=== PATIENT | male | born 1960 | race Caucasian/White ===

== ENCOUNTER 2018-03-05 11:46 | Emergency (ER) | payer MEDICAID ==
--- NOTE | 2018-03-05 12:22 | EDM.PDOC ---
ED HPI GENERAL MEDICAL PROBLEM - General Chief Complaint: Lower Extremity Injury/Pain Stated Complaint: FINGER INJURY Time Seen by Provider: 03/05/18 11:54 Source of Information: Reports: Patient History Limitations: Reports: No Limitations - History of Present Illness INITIAL COMMENTS - FREE TEXT/NARRATIVE: The patient present with left ring finger swelling and pain. The patient did not inure his finger. He started noticing it about 3 days ago. He has no fever or chills. He poked it but just had blood. Onset: Gradual Duration: Day(s): (3) Location: Reports: Upper Extremity, Left (index finger) Quality: Reports: Sharp Severity: Moderate Improves with: Reports: None Worsens with: Reports: None Associated Symptoms: Reports: No Other Symptoms left second finger Pain Score (Numeric/FACES): 2 - Related Data Allergies Allergy/AdvReac Type Severity Reaction Status Date / Time No Known Allergies Allergy Verified 03/05/18 11:56 Home Meds: Home Meds Cephalexin [Keflex] 500 mg PO Q6HR #40 capsule 03/05/18 [Rx] metFORMIN [Glucophage XR] 1,000 mg PO BIDMEALS 03/05/18 [History] Past Medical History - Past Health History Medical/Surgical History: Denies Medical/Surgical History Endocrine/Metabolic History: Reports: Diabetes, Type II Social & Family History - Family History Family Medical History: Noncontributory - Tobacco Use Smoking Status *Q: Never Smoker Second Hand Smoke Exposure: No - Caffeine Use Caffeine Use: Reports: Coffee - Recreational Drug Use Recreational Drug Use: No Review of Systems - Review of Systems Review Of Systems: See Below Constitutional: Reports: No Symptoms Eyes: Reports: No Symptoms Ears: Reports: No Symptoms Nose: Reports: No Symptoms Mouth/Throat: Reports: No Symptoms Respiratory: Reports: No Symptoms Cardiovascular: Reports: No Symptoms GI/Abdominal: Reports: No Symptoms Genitourinary: Reports: No Symptoms Musculoskeletal: Reports: Other (Left index finger pain and swelling) ED EXAM, GENERAL - Physical Exam Exam: See Below Exam Limited By: No Limitations General Appearance: Alert, No Apparent Distress Ears: Normal External Exam Nose: Normal Inspection Head: Atraumatic, Normocephalic Neck: Normal Inspection Respiratory/Chest: No Respiratory Distress Extremities: Other (Erythema, edema and pain to the base of the left index finger) Course - Vital Signs Last Recorded V/S: Last Vital Signs Temp 97.8 F 03/05/18 11:50 Pulse 74 03/05/18 11:50 Resp 18 03/05/18 11:50 BP 150/89 H 03/05/18 11:50 Pulse Ox 98 03/05/18 11:50 - Re-Assessments/Exams Free Text/Narrative Re-Assessment/Exam: 03/05/18 12:24 He has a parenychia. I will get him on some keflex. Departure - Departure Time of Disposition: 12:25 Disposition: Home, Self-Care 01 Condition: Good Clinical Impression: Paronychia - Discharge Information Prescriptions: Cephalexin [Keflex] 500 mg PO Q6HR #40 capsule Referrals: PCP,None [Primary Care Provider] - Veornica Collado PA [Physician Byproducts Supervisor] - 1 Week Forms: ED Department Discharge Additional Instructions: Soak your finger in warm soapy water 2 times per day and apply antibiotic ointment after. Put warm compresses on your finger 3 times per day for 5 days. Take the keflex 4 times per day. Please return if you are worse.
== END 2018-03-05 12:35 | disposition home or self-care (01) ==
LOC: JD.ED 11:46
DX: L03.012 Cellulitis of left finger (principal)
CPT/HCPCS: 99283

== ENCOUNTER 2018-03-08 14:15 | Emergency (ER) | payer MEDICAID ==
[2018-03-08] MEDS ORDERED: Bupivacaine 0.5% 10 ML SDV INJECT ONE (14:43)
[2018-03-08] MEDS ORDERED: Ketorolac 30 MG/ML SDV IVPUSH SCH (14:45)
[2018-03-08] MEDS ORDERED: cefTRIAXone 2 GM in Sodium Chloride 0.9% 100 ML IV SCH (14:45)
--- NOTE | 2018-03-08 14:45 | EDM.PDOC ---
ED HPI GENERAL MEDICAL PROBLEM - General Chief Complaint: Wound Recheck Stated Complaint: INFECTED FINGER NOT BETTER Time Seen by Provider: 03/08/18 14:39 Source of Information: Reports: Patient History Limitations: Reports: No Limitations - History of Present Illness INITIAL COMMENTS - FREE TEXT/NARRATIVE: 57-year-old male presents to the ED with increased pain and swelling and redness of his left index finger distally. He was seen through the ED by Dr. Bird on March 05. He had a paronychia infection at that time with no purulent discharge. He was placed on cephalexin 500 mg 3 times a day and reports that there is no improvement in fact if anything its getting worse. Tetanus toxoid is up-to-date. He has no systemic signs of illness such as fever chills nausea vomiting. Pain is bad enough that it keeps her awake at night though due to the severity of the throbbing. Of note the patient is a type II diabetic controlled with diet and metformin. 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, Other (see below) (Motrin and cephalexin 500 mg 3 times a day for the last 4 days without improvement.) Left Hand Pain Score (Numeric/FACES): 5 - Related Data Allergies Allergy/AdvReac Type Severity Reaction Status Date / Time No Known Allergies Allergy Verified 03/08/18 14:24 Home Meds: Home Meds Cephalexin [Keflex] 500 mg PO Q6HR #40 capsule 03/05/18 [Rx] metFORMIN [Glucophage XR] 1,000 mg PO BIDMEALS 03/05/18 [History] Doxycycline [Vibramycin] 100 mg PO DAILY #20 tab 03/08/18 [Rx] oxyCODONE HCl/Acetaminophen [Percocet 5-325 mg Tablet] 1 - 2 each PO Q4H PRN # 10 tablet 03/08/18 [Rx] Past Medical History - Past Health History Medical/Surgical History: Denies Medical/Surgical History Endocrine/Metabolic History: Reports: Diabetes, Type II Social & Family History - Family History Family Medical History: Noncontributory - Tobacco Use Smoking Status *Q: Never Smoker - Caffeine Use Caffeine Use: Reports: Coffee - Recreational Drug Use Recreational Drug Use: No - Living Situation & Occupation Living situation: Reports: Occupation: Unemployed ED ROS GENERAL - Review of Systems Review Of Systems: See Below Constitutional: Denies: Fever, Chills, Malaise, Weakness, Fatigue HEENT: Reports: Glasses Respiratory: Reports: No Symptoms Cardiovascular: Reports: No Symptoms Endocrine: Reports: No Symptoms GI/Abdominal: Reports: No Symptoms : Reports: Other (Nocturia 2) Musculoskeletal: Reports: Back Pain (Occasional positive low back pain) Skin: Reports: Other (Currently has a paronychial infection left index finger with swelling and erythema and fluctuance) Neurological: Reports: No Symptoms Psychiatric: Reports: No Symptoms Hematologic/Lymphatic: Reports: No Symptoms Immunologic: Reports: No Symptoms ED EXAM, SKIN/RASH Exam: See Below Exam Limited By: No Limitations General Appearance: Alert, WD/WN, Mild Distress Extremities: Other (Examination was essentially limited to his left hand particularly the left index finger. Patient has a paronychia infection along the radial aspect of the fingernail that is now spread to the dorsal aspect of the fingernail with increased erythema warmth and some fluctuance laterally. Is in spite of being on cephalexin 500 mg 3 times a day for the last 3-1/2 days. Wound will have to be opened up and drained.) Neurological: Alert ( When his digital block.), Oriented, CN II-XII Intact, Normal Cognition Psychiatric: Normal Affect, Normal Mood Skin: Warm, Dry, Intact, Other (Paronychia infection left index finger. Of note his skin is very dry with crusting at the bases of his all his fingernails making a portal for infection.) ED WOUND PROCEDURES - I&D Skin Prep: Chlorhexidine (Hibiciens) (Distal left index finger) Local Anesthesia - Bupivicaine (Marcaine): 0.5% Plain Local Anesthetic Volume: 4cc Area Incised With: 15 Blade Drainage: Purulent Probed to Break Up Loculations: No Sterile Dressing: Adhesive Dressing Complications: No Course - Vital Signs Last Recorded V/S: Last Vital Signs Temp 36.8 C 06/03/18 14:23 Pulse 76 03/08/18 16:11 Resp 16 03/08/18 16:11 BP 138/86 03/08/18 16:11 Pulse Ox 100 03/08/18 16:11 - Orders/Labs/Meds Orders: Active Orders 24 hr Category Date Time Status CULTURE ANAEROBIC + SMEAR [RM] Stat Lab 03/08/18 15:30 Received Meds: Medications Discontinued Medications Generic Name Dose Route Start Last Admin Trade Name Melodie PRN Reason Stop Dose Admin Bupivacaine HCl 10 ml 03/08/18 14:43 03/08/18 14:57 Sensorcaine-Mpf 0.5% INJECT 03/08/18 14:44 10 ml ONETIME ONE Administration Doxycycline Hyclate 200 mg 03/08/18 14:48 03/08/18 14:57 Vibramycin PO 03/08/18 14:49 200 mg ONETIME ONE Administration Doxycycline Hyclate 100 mg 03/08/18 15:58 03/08/18 16:10 Vibramycin PO 03/08/18 15:59 100 mg ONETIME ONE Administration Ceftriaxone Sodium 2 gm/ 100 mls @ 100 mls/hr 03/08/18 14:45 03/08/18 14:56 Sodium Chloride IV 100 mls/hr Q24H QUIRINO Administration Ketorolac Tromethamine 30 mg 03/08/18 14:45 03/08/18 14:57 Toradol IVPUSH 30 mg ONETIME QUIRINO Administration Oxycodone/Acetaminophen 2 tab 03/08/18 15:59 03/08/18 16:10 Percocet 325-5 Mg PO 03/08/18 16:00 2 tab ONETIME ONE Administration - Radiology Interpretation Free Text/Narrative:: 57-year-old male presents to the ED with worsening paronychia infection of his left index finger. This is in spite of being on cephalexin 500 mg 3 times a day for the last 3 and half days. Patient is a type II diabetic controlled with metformin. There is fluctuance on the leg radial aspect of the fingernail bed. There is erythema at the base of the nail and dorsal finger. No red streaking or lymphangitis up the finger yet. Plan digital block using Marcaine 0.5%. Open the recess and drain it. MRSA infection. Treated with Rocephin 2 g IV while in the ED and Dr. shore 200 mg by mouth. - Re-Assessments/Exams Free Text/Narrative Re-Assessment/Exam: 03/08/18 15:02 digital block performed using Marcaine 0.5% to numb his left index finger to allow incision and drainage of paronychia labs assessed. This will be performed in the next 10 minutes or so once the medicine has had 03/08/18 15:33 incision and drainage carried out on the distal aspect of the left index finger. Approximate 4 mils of purulent material were obtained. Cultures were obtained. Patient is still receiving his Rocephin IV. He will be discharged on doxycycline 100 mg twice a day for the next 10 days. Percocet tabs 5/3/25 milligrams strength one or 2 every 4-6 hours needed for pain relief. 10 tablets provided. He will get his meds out of the [employer] machine. Departure - Departure Time of Disposition: 15:38 Disposition: Home, Self-Care 01 Condition: Fair Clinical Impression: Acute bacterial paronychia - Discharge Information Prescriptions: Doxycycline [Vibramycin] 100 mg PO DAILY #20 tab oxyCODONE HCl/Acetaminophen [Percocet 5-325 mg Tablet] 1 - 2 each PO Q4H PRN # 10 tablet PRN Reason: pain relief. Instructions: Paronychia, [id number] Referrals: PCP,None [Primary Care Provider] - Forms: ED Department Discharge Additional Instructions: Evaluation the emergency room today in regards to worsening infection left distal index finger. It appears that the current antibiotics are not effective against the bacteria that is causing his infection. Therefore you underwent incision and drainage of the paronychial infection under digital block. Pain about 4 mils appearing purulent material which was sent for culture. You are treated with intravenous antibiotic Rocephin 2 g intravenously while in the ED. Also 200 mg of doxycycline was given by mouth. you need a second tablet later tonight before bed. Pain medication Motrin 600 mg every 6 hours needed for pain relief. Percocet tabs--5/325 milligram tablet 1 or 2 every 4-6 hours needed for pain relief not controlled by Motrin alone. Expect marked improvement over the next 48-72 hours - My Orders Last 24 Hours: My Active Orders 03/08/18 15:30 CULTURE ANAEROBIC + SMEAR [RM] Stat - Assessment/Plan Last 24 Hours: My Active Orders 03/08/18 15:30 CULTURE ANAEROBIC + SMEAR [RM] Stat
[2018-03-08] MEDS ORDERED: Doxycycline 100 MG Cap PO ONE ×2 (14:48→15:58)
[2018-03-08] MEDS ORDERED: Acetaminophen/oxyCODONE 325-5 MG Tab PO ONE (15:59)
== END 2018-03-08 16:11 | disposition home or self-care (01) ==
LOC: JD.ED 14:15
DX: L03.012 Cellulitis of left finger (principal); B96.89 Other specified bacterial agents as the cause of diseases classified elsewhere; E11.9 Type 2 diabetes mellitus without complications
CPT/HCPCS: 10060; 87075; 87205; 96365; 96375; 99284; A9270; J0696; J1885; J7030; 87076; 87077; 87181; 87184; 87186; 99283-25